=== PATIENT | female | born 1990 | race African-American/Black ===

== ENCOUNTER 2025-10-11 14:09 | Outpatient (REF) | payer OTHER, SELFPAY ==
--- OUTSIDE RECORDS SUMMARY | 2025-10-11 11:30 | XMS_ITS | Encounter Summary ---
Author Organization [employer] Address [address] [facility] 7 [place] [address] Care Team Providers Care Extrusion Former Name Role Phone Job Zimmerman Unavailable Unavailable Lisa Araujo MD Primary Care Provider [phone] Encounter Details Date Type Department Care Team ([facility] Contact Info) Description 10/11/2025 11:30 AM EST Office Visit [facility] [address] [place], [place] [phone] Lisa Araujo MD [address] [place] [address] Dysuria (Primary Dx) Social History Tobacco Use Types Packs/Day Years Used Date Smoking Tobacco: Never Passive Smoke Exposure: Never Smokeless Tobacco: Never Alcohol Answer Date Recorded How often do you have a drink containing alcohol ? 2 01/24/2023 How many drinks containing a lcohol do you have on a typical day when you are drinking? 1 01/24/2023 How often do you have six or more drinks on one occasion? 0 01/24/2023 Depression Answer Date Recorded Patient Health Questionnaire-9 Score 12 06/11/2024 Patient Health Questionnaire-9 Score 12 06/11/2024 Last PHQ-9: Questionnaire Data Not on file 0 06/11/2024 Housing Stability Answer Date Recorded What is your housing situation today? I have fernanda hudson 08/25/[address] you li ve. Do you have problems with any of the following? None of the above 08/25/2023 Food Insecurity Answer Date Recorded Within the past 12 months, y ou worried that your food would run out before you got money to buy more: Never True 08/25/2023 Within the past 12 months,th e food you bought just didn't last and you didn't have enough money to get more: Never True Transportation Answer Date Recorded In the past 12 months, has l ack of transportation kept you from medical appts, meetings, work or from getting things needed for daily living? No 08/25/2023 Utilities Answer Date Recorded In the past 12 months, has t he [employer], [employer], oil or water [employer] threatened to shut off services in your home? No 08/25/2023 Depression Answer Date Recorded Patient Health Questionnaire-2 Score 3 06/11/2024 Comments No Sex and Gender Information Value Date Recorded Sex Assigned at Female 09/03/2022 10:34 AM EDT Legal Sex Female 10:34 AM EDT Gender Identity Female 09/03/2022 10:34 AM EDT Sexual Orientation Straight 04/13/2024 4: 25 PM EDT documented as of this encounter Last Filed Vital Signs Vital Sign Reading Time Taken Comments Blood Pressure 105/68 10/11/2025 11:42 AM EST Pulse 76 10/11/2025 11:42 AM EST Temperature 36.2 C (97.2 F) 10/11/2025 11:42 AM EST Respiratory Rate 20 10/11/2025 11:42 AM EST Oxygen Saturation 98% 10/11/2025 11:42 AM EST Inhaled Oxygen Concentration - - Weight 87.1 kg (192 lb) 10/11/2025 11:42 AM EST Height 175.3 cm (5' 9 ) 10/11/2025 11:42 AM EST Body Mass Index 28.35 10/11/2025 11:42 AM EST documented in this encounter Plan of Treatment Scheduled Orders Name Type Priority Associated Diagnoses Orde r Schedule Culture, Urine, Routine Microbiology Routine Dysuria Expected: 10/11/2025 (Approximate), Expires: 10/11/2026 documented as of this encounter Procedures Procedure Name Priority Date/Time Associated Diagnosis Comments POCT URINALYSIS DIPSTICK Routine 10/11/2025 11:51 AM EST Dysuria documented in this encounter Results * (ABNORMAL) POCT Urinalysis (10/11/2025 11:51 AM EST) Color, UA Yellow Clarity, UA Clear Glucose, UA 1+ 70+ Comment:100 mg/dl Bilirubin, UA Negative Ketones, UA Negative Spec Grav, UA 1.010 Blood, UA Positive(A) Negative, None Detected Comment:moderate pH, UA 7.0 Protein, UA Negative Urobilinogen, UA 0.2 Leukocytes, UA Trace Negative, Rare, Trace, 1+ (17), 2+ (35), 3+ (70), Trace (15) Comment:small Nitrite, UA Positive(A) Negative, None Detected Appearance, UA clear QC Media Lot # [id number] Lot# Expiration Date [id number] Urine (Urine, Random) 10/11/2025 11:51 AM EST us Lisa Araujo MD POINT OF CARE TEST ENTER/EDIT ORDERABLES Final Result documented in this encounter Visit Diagnoses Diagnosis Dysuria- Primary documented in this encounter Additional Health Concerns Assessment Noted Time PHQ-9 Depression Total Score: 12 024 2:54 PM EDT documented as of this encounter Care Teams Extrusion Former Relationship Specialty Start Date End Date Lisa Araujo MD [address] [place] [address] PCP - General Family Medicine 07/13/24 Job Zimmerman FNP Nurse Practitioner Family Medicine 09/16/23 [facility] 09/18/[address] [place] [address] Consulting Physician Ophthalmology 09/18/24 Ms. Grant Psychologist 09/18/24 documented as of this encounter
--- OUTSIDE RECORDS SUMMARY | 2025-10-11 23:04 | XMS_ITS | Encounter Summary ---
Author Organization [employer] Address [address] [facility] 7 [place] [address] Care Team Providers Care Power Transformer Repairer Name Role Phone Job Zimmerman SENIOR VICE PRESIDENT AND CHIEF INFORMATION OFFICER Unavailable Unavailable Lisa Araujo MD Primary Care Provider [phone] Reason for Visit * Reason Onset Date Comments Nurse Triage 10/11/2025 Encounter Details Date Type Department Care Team ([facility] Contact Info) Description 10/11/2025 Telephone [facility] MED [facility] PEDS [address] [place] [address] Lisa Araujo MD [address] [place] [address] Nurse Triage Social History Tobacco Use Types Packs/Day Years [...] the past 12 months, has t he [employer], gas, oil or water company threatened to shut off services in your home? No 08/25/2023 Depression Answer Date Recorded Patient Health Questionnaire-2 Score 3 06/11/2024 Comments No Sex and Gender Information Value Date Recorded Sex Assigned at Female 09/03/2022 10:34 AM EDT Legal Sex Female 10:34 AM EDT Gender Identity Female 09/03/2022 10:34 AM EDT Sexual Orientation Straight 04/13/2024 4: 25 PM EDT documented as of this encounter Miscellaneous Notes * Telephone Encounter - Debbi Flores RN - 10/11/2025 9:42 AM EST TC placed to pt for triage. Pt reports they began with sharp pains with urination yesterday. Pt reports they are also having urgency but will urinate very little when the feel they urge to use the restroom. Pt reporting malodorous urine. Pt reports they did take AZO which caused their urine to turnorange. Pt denies fever, chills, back pain or side pain. Pt booked for sick on site with PCP today at 11:30 AM. Pt agreeable to appointment and denies questions at this time. Protocol Used: Urination Pain - Female (Adult) Protocol-Based Disposition: See in Office or Video Visit Today Video visit offer not recorded Positive Triage Question: * Painful urination AND EITHER frequency or urgency * All higher-acuity triage questions were negative. Care Advice Discussed: * Reasons To Call Back - Fever or back pain occurs - You become worse * Telephone Encounter - Maximiliano Watersjane - 10/11/2025 8:43 AM EST Symptoms: Urine Symptoms, Urination Pain Outcome: Schedule an urgent appointment (within 4 hours) or talk to a nurse or provider soon Reason: Pain when passing urine (peeing) The caller accepted this outcome. Contact pt at [phone] documented in this encounter Plan of Treatment Not on file documented as of this encounter Visit Diagnoses Not on filedocumented in this encounter Additional Health Concerns Assessment Noted Time PHQ-9 Depression Total Score: 024 2:54 PM EDT documented as of this encounter Care Teams Power Transformer Repairer Relationship Specialty Start Date End Date Lisa Araujo MD [address] [place] [address] PCP - General Family Medicine 07/13/24 Job Zimmerman FNP Nurse Practitioner Family Medicine 09/16/23 [facility] 09/18/[address] [place] [address] Consulting Physician Ophthalmology 09/18/24 Ms. Grant Psychologist 09/18/24 documented as of this encounter
--- OUTSIDE RECORDS SUMMARY | 2025-10-11 23:04 | XMS_ITS | Encounter Summary ---
Author Organization [facility] Prior to 09/04/2024 Address [address] [place] [address] Care Team Providers Care Chief Librarian Work With Blind Name Role Phone Maru Arce MD Primary Care Provider [phone] Encounter Details Date Type Department Care Team Description 03/06/2018 Impregnator Operator Report Medical Records [address] [place] [address] Marcia Dunne NP Social History Tobacco Use Types Packs/Day Years Used Date Smoking Tobacco: Former Alcohol Use Standard Drinks/Week Comments Not Asked 0 (1 standard drink = 0.6 oz pur e alcohol) Financial Resource Strain Answer Date R ecorded How hard is it for you to pa y for the very basics like food, housing, medical care, and heating? Not hard at all 12/29/2019 Food Insecurity Answer Date Recorded Within the past 12 months, y ou worried that your food would run out before you got money to buy more. Never true 12/29/2019 Within the past 12 months, t he food you bought just didn't last and you didn't have money to get more. Never true 12/29/2019 Transportation Needs Answer Date Record ed In the past 12 months, has l ack of transportation kept you from medical appointments or from getting medications? No 12/06 In the past 12 months, has l ack of transportation kept you from meetings, work, or getting things needed for daily living? No 12/29/2019 Sex Assigned at Date Recorded Not on file documented as of this encounter Plan of Treatment Not on file documented as of this encounter Visit Diagnoses Not on filedocumented in this encounter Care Teams Chief Librarian Work With Blind Relationship Specialty Start Date End Date Maru Arce MD [address] [place] [address] PCP - General Internal Medicine 04/06/16 documented as of this encounter
--- OUTSIDE RECORDS SUMMARY | 2025-10-11 23:04 | XMS_ITS | Encounter Summary ---
Author Organization [employer] [facility] Prior to 09/04/2024 Address [address] [facility] [place] [place] [address] Care Team Providers Care Small Arms Repairer Name Role Phone Maru Arce MD Primary Care Provider [phone] Encounter Details Date Type Department Care Team Description 07/27/2016 Release of Information Medical Records [address] [place] [address] Abstract, Provider Social History Tobacco Use Types Packs/Day Years [...] on filedocumented in this encounter Care Teams Small Arms Repairer Relationship Specialty Start Date End Date Maru Arce MD [address] [place] [address] PCP - General Internal Medicine 04/06/16 documented as of this encounter
--- OUTSIDE RECORDS SUMMARY | 2025-10-11 23:04 | XMS_ITS | Encounter Summary ---
Author Organization [employer] [facility] Prior to 09/04/2024 Address [address] [facility] [place] [address] Care Team Providers Care Sheep Killer Name Role Phone Maru Arce MD Primary Care Provider [phone] Encounter Details Date Type Department Care Team Description 06/05/2019 Release of Information Medical Records [address] [place] [address] Abstract, Provider Social History Tobacco Use Types Packs/Day Years Used Date Smoking Tobacco: Former Smokeless Tobacco: Never Comments:brief at age 22 Alcohol Use Standard Drinks/Week Comments Yes 0 (1 standard drink = 0.6 oz pur e alcohol) not in Financial Resource Strain Answer Date R ecorded [...] on filedocumented in this encounter Care Teams Sheep Killer Relationship Specialty Start Date End Date Maru Arce MD [facility] [place] [address] PCP - General Internal Medicine 04/06/16 documented as of this encounter
--- OUTSIDE RECORDS SUMMARY | 2025-10-11 23:04 | XMS_ITS | Encounter Summary ---
Author Organization [employer] Address [address] [address] [facility] [address] [place] [address] Care Team Providers Care Cash Clerk Name Role Phone Job Zimmerman Unavailable Unavailable Lisa Araujo MD Primary Care Provider [phone] Encounter Details Date Type Department Care Team (Latest Contact Info) Description 10/11/2025 Travel Social History Tobacco Use Types Packs/Day Years [...] the past 12 months, has t he electric, gas, oil or water company threatened to [...] PM EDT documented as of this encounter Plan of Treatment Not on file documented as of this encounter Visit Diagnoses Not on filedocumented in this encounter Additional Health Concerns Assessment Noted Time PHQ-9 Depression Total Score: 12 024 2:54 PM EDT documented as of this encounter Care Teams Cash Clerk Relationship Specialty Start Date End Date Lisa Araujo MD [address] [place] [address] PCP - General Family Medicine 07/13/24 Job Zimmerman FNP Nurse Practitioner Family Medicine 09/16/23 [facility] Op[facility] 09/18/[address] [place] [address] Consulting Physician Ophthalmology 09/18/24 Ms. Grant Psychologist 09/18/24 documented as of this encounter
--- OUTSIDE RECORDS SUMMARY | 2025-10-11 23:04 | XMS_ITS | Encounter Summary ---
Author Organization [facility] Prior to 09/04/2024 Address [address] [place] [address] Care Team Providers Care Scheduling Agent Name Role Phone Maru Arce MD Primary Care Provider [phone] Reason for Visit * Reason Onset Date Comments medication problems 06/20/2019 Encounter Details Date Type Department Care Team Description 06/20/2019 Telephone [facility] [address] [place] [address] Maru Arce, [address] [place] [address] medication problems Social History Tobacco Use Types Packs/Day Years [...] on file documented as of this encounter Miscellaneous Notes * Telephone Encounter - Adore Ivy L.P.N. - 06/20/2019 3:03 PM EDT Rody returned call, she will call pt. * Telephone Encounter - Adore Ivy L.P.N. - 06/20/2019 3:00 PM EDT Pt is , was advised unisom for nausea to be taken at night. States she took it last night and it did not help at all, states she had to leave work today as she was constantly vomiting. Call placed to Marie KIMBLE diabetes education coordinator, message left. * Telephone Encounter - Lilibeth Serrato - 06/20/2019 2:36 PM EDT Who is calling? The patient Name of the medication [place] Medication ( doesn't know the name) What is the specific problem or interaction? Not at pharamcy, was here yesterday If the patient is having a problem with taking the med - how long has the problem been going on? N/A documented in this encounter Plan of Treatment Not on file documented as of this encounter Visit Diagnoses Not on filedocumented in this encounter Care Teams Scheduling Agent Relationship Specialty Start Date End Date Maru Arce MD [facility] [place] [address] PCP - General Internal Medicine 04/06/16 documented as of this encounter
--- OUTSIDE RECORDS SUMMARY | 2025-10-11 23:04 | XMS_ITS | Clinical Summary ---
Author Organization [facility] Address [address] [place] [address] Phone Care Team Providers Care Dialysis Patient Care Technician Name Role Phone Marysol Arce MD Primary Care Prov ider Allergies No known active allergies Medications sertraline (ZOLOFT) 50 mg tablet Take 2 tablets (100 mg total) by mouth 1 (one) time each day. 11/30/2020 Active Active Problems Problem Noted Date Diagnosed Date Gestational hypertension 01/06/2020 Overview (12/02/2024): Diagnosed on admission. No labs performed, but did not persist after delivery. ASA prophylaxis next . Headache 07/11/2019 Anxiety 05/25/2019 Asthma 05/25/2019 Overview (12/02/2024): Stable, albuterol inhaler as needed Depression 05/25/2019 Overview (12/02/2024): Started on zoloft at 12 weeks Referral for Will try and wean closer to delivery Sleep disorder 07/25/2016 Rh negative status during Immunizations Immunization Administration Dates Next Due Tdap Tetanus diptheria acell ular pertussis (Boostrix; Adacel) 7yo and older 11/06/2019 Surgical History Surgery Date Site/Laterality Comments SECTION PROCEDURE: HISTORICAL DELIVERY Medical History Medical History Date Comments Depression 05/25/2019 DX:Depression Anxiety 05/25/2019 DX:Anxiety Asthma 05/25/2019 DX:Asthma; COMME NT: Stable, albuterol inhaler as needed Sleep disorder 07/25/2016 DX:Sleep disorde r Headache 07/11/2019 DX:Headache Family History Medical History Relation Name Comments Breast cancer Neg Hx Colon cancer Neg Hx Ovarian cancer Neg Hx Social History Tobacco Use Types Packs/Day Years Used Date Smoking Tobacco: Former Smokeless Tobacco: Never Alcohol Use Standard Drinks/Week Comments Yes 0 (1 standard drink = 0.6 oz pur e alcohol) Comments Unknown Sex and Gender Information Value Date Recorded Sex Assigned at Not on file Legal Sex Female 5:16 AM EST Gender Identity Not on file Sexual Orientation Not on file Plan of Treatment Health Maintenance Due Date Last Done Comments Hepatitis B Vaccines (1 of 3 - 19+ 3-dose series) 2010 Pneumococcal Vaccine: Pediat rics (0 to 5 Years) and At-Risk Patients (6 to 49 Years) (1 of 2 - PCV) 2010 Cervical Cancer Screening: P ap Smear 02/09/2012 HPV Vaccines (1 - 3-dose SCD M series) 2018 Cholesterol Screening (Lipid Panel) 10/13/2022 Hepatitis C Screening 10/13/2022 Social Influencers of Health Screening 10/13/2022 Hypertension/CHF/CAD Annual BMP Blood Test 10/19/2022 07/25/2016 Depression Screening 11/04/2024 COVID-19 Vaccine ( - 2024-2 6 season) 2025 Influenza Vaccine (#1) 2025 DTaP,Tdap,and Td Vaccines (2 - Td or Tdap) 11/06/2029 11/06/2019 RSV Immunization Adult Patie nts (1 - 1-dose 75+ series) 2066 HIV Screening Completed 06/03/2019 HIB Vaccines Aged Out No longer eligi ble based on patient's age to complete this topic Hepatitis A Vaccines Aged Out No long er eligible based on patient's age to complete this topic IPV Vaccines Aged Out No longer eligi ble based on patient's age to complete this topic MMR Vaccines Aged Out No longer eligi ble based on patient's age to complete this topic Meningococcal ACWY Vaccine Aged Out N o longer eligible based on patient's age to complete this topic Meningococcal B Vaccine Aged Out No l onger eligible based on patient's age to complete this topic RSV Immunization Patients Un madai 20 months Aged Out No longer eligible b ased on patient's age to complete this topic Varicella Vaccines Aged Out No longer eligible based on patient's age to complete this topic Procedures Procedure Name Priority Date/Time Associated Diagnosis Comments HIV SCREENING Routine 06/03/2019 ANNUAL BMP BLOOD TEST Routine 07/25/2016 from Last 3 Months or Most Recently Relevant to Health Maintenance Results * HIV Screening (06/03/2019) HIV Screening Abstracted Historical Provider HEALTH MAINTENANCE Final Result * Annual BMP Blood Test (07/25/2016) Annual BMP Blood Test Abstracted Historical Provider HEALTH MAINTENANCE Final Result from Last 3 Months or Most Recently Relevant to Health Maintenance Care Teams Dialysis Patient Care Technician Relationship Specialty Start Date End Date Marysol Arce MD PCP - General Internal Medicine 04/06/16
--- OUTSIDE RECORDS SUMMARY | 2025-10-11 23:04 | XMS_ITS | Clinical Summary ---
Author Organization [facility] Prior to 09/04/2024 Address [address] [facility] [place] [address] Care Team Providers Care Respite Worker Name Role Phone Maru Arce MD Primary Care Provider [phone] Allergies No known active allergies Medications Medication Sig Dispensed Refills Start Date End Date Status sertraline (ZOLOFT) 50 MG tabletIndications:Moder ate episode of recurrent major depressive disorder (HCC) Take 2 Tabs by mouth daily. 60 Tab 2 11/30/2020 Active Active Problems Problem Noted Date Gestational hypertension 01/06/2020 Overview: Diagnosed on admission. No labs performed, but did not persist after delivery. ASA prophylaxis next . Headache 07/11/2019 Rh negative status during 11/2018 Overview: Needs Rhogam eval at 28 weeks and . Rec'd 10/09/2019 Supervision of normal first Overview: 1. [facility] site: [place] 2. Delivery site: [facility] 3. Dating criteria: LMP c/ew early sono 3. Blood type: A Negative 4. Genetic screening: Normal 1st Trimester screen; AFP negative 5. GBS: Date: 12/04/2019 Negative 6. FOB name: Artemio Parrish 7. Plans A. Epidural or other pain management -open B. Labor support identified - artemio Jones - Date: 11/06/19 D. Breast or Bottle feed: both breast and bottle E. Baby's name - BOY F. Circumcision - yes Zika assessment screening: negative Pedi- [facility]oNE- [place] PPCM Asthma 05/25/2019 Overview: Stable, albuterol inhaler as needed Anxiety 05/25/2019 Depression 05/25/2019 Overview: Started on zoloft at 12 weeks Referral for Will try and wean closer to delivery Sleep disorder 07/25/2016 Immunizations Name Administration Dates Next Due Tdap 11/06/2019 Family History Medical History Relation Name Comments CA Breast Negative Hx CA Colon Negative Hx CA Ovarian Negative Hx Social History Tobacco Use Types Packs/Day [...] Assigned at Date Recorded Not on file Last Filed Vital Signs Vital Sign Reading Time Taken Comments Blood Pressure 100/62 11/09/2020 10:02 AM EST Pulse 79 11/09/2020 10:02 AM EST Temperature 36.2 C (97.2 F) 12/11/2019 1:42 PM EST Respiratory Rate 16 01/25/2020 10:55 AM EDT Oxygen Saturation - - Inhaled Oxygen Concentration - - Weight 75.5 kg (166 lb 8 oz) 11/09/2020 10:02 AM EST Height 175.3 cm (5' 9 ) 11/09/2020 10:02 AM EST Body Mass Index 24.59 11/09/2020 10:02 AM EST Plan of Treatment Health Maintenance Due Date Last Done Comments Covid-19 Vaccine (#1) 1991 PNEUMOCOCCAL VACCINE FOR HIG H RISK PATIENTS (#1) 2010 CERVICAL CANCER SCREENING 02/09/2012 BASELINE HEALTH EXAM 18-39 07/25/2021 07/25/2016, CHOLESTEROL SCREENING 07/25/2021 07/25/2016 BMI CHECK/ADVISE 11/04/2024 07/25/2016 DEPRESSION SCREENING/FOLLOWUP 11/04/2024, 01/23/2021, 01/19/2021, Additional history exists SOCIAL NEEDS SCREENING 11/04/2024 INFLUENZA (#1) 2025 DTAP/TDAP/TD (2 - Td or Tdap) 11/06/2029 11/06/2019 Care Teams Respite Worker Relationship Specialty Start Date End Date Maru Arce MD [address] [place] [address] PCP - General Internal Medicine 04/06/16
--- OUTSIDE RECORDS SUMMARY | 2025-10-11 23:04 | XMS_ITS | Clinical Summary ---
Author Organization [employer] Address [address] 7 [place] [address] Care Team Providers Care Instrument Lens Inspector Name Role Phone Job Zimmerman Unavailable Unavailable Lisa Araujo MD Primary Care Provider [phone] Allergies No known active allergies Medications * This document contains information received from the source organization and may not represent a complete record from that organization. ergocalciferol (Vitamin D2) 1.25 MG (13726 UT) capsule Take 1 capsule (1.25 mg) by mouth 1 (one) time per week. 15 capsule 02/07/2023 Active ARIPiprazole (Abilify) 10 MG tablet Take 1 tablet (10 mg) by mouth Once per day. 30 tablet 3 05/12/2024 Active lamoTRIgine (LaMICtal XR) 300 mg tablet sustained-releas e 24 hour 24 hr tabletIndication s:Bipolar affective disorder, remission status unspecified (CMS/HCC) ([facility]) Take 1 tablet (300 mg) by mouth in the morning. 90 tablet 3 05/12/2024 Active busPIRone (Buspar) 10 MG tablet Take 1 tablet (10 mg) by mouth 2 times daily. 60 tablet 5 06/11/2024 Active brimonidine (AlphaGAN) 0.2 % ophthalmic solution PLACE ONE DROP IN EACH EYE TWICE DAILY 08/11/2024 Active albuterol 108 (90 Base) MCG/ACT inhaler Inhale 2 puffs every 4 (four) hours if needed for wheezing. 18 g 09/18/2024 Active hydrOXYzine pamoate (Vistaril) 25 MG capsule TAKE ONE CAPSULE EVERY DAY NEEDED FOR SLEEP 08/30/2025 Active melatonin 5 MG tablet Take 1 tablet by mouth at bedtime. 08/30/2025 Active traZODone (Desyrel) 50 MG tablet TAKE 1/2 TO 1 TABLET AT BEDTIME NEEDED FOR SLEEP 06/24/2025 Active ARIPiprazole (Abilify) 15 MG tablet Take 15 mg by mouth Once per day. 08/30/2025 Active busPIRone (Buspar) 30 MG tablet Take 30 mg by mouth 2 times daily. 08/30/2025 Active lamoTRIgine (LaMICtal XR) 100 mg tablet sustained-releas e 24 hour 24 hr tablet Take 100 mg by mouth Once per day. 09/28/2025 Active lamoTRIgine (LaMICtal XR) 200 mg tablet sustained-releas e 24 hour 24 hr tablet Take 200 mg by mouth Once per day. 09/28/2025 Active nitrofurantoin, macrocrystal-mon ohydrate, (Macrobid) 100 MG capsule Take 1 capsule (100 mg) by mouth 2 times daily for 7 days. 14 capsule 10/11/2025 12:14 PM EST 10/11/2025 10/18/20 25 Active Active Problems Problem Noted Date Diagnosed Date Rh negative status during 10/11/2025 Nausea 04/13/2024 Vitamin D deficiency 02/07/2023 Bipolar disorder 11/08/2022 Assessment & Plan (05/18/2024 9:12 AM EDT): During IBH Consult Jhoyn presenting with excessive worry/anxiety, difficulty controlling worry, easily fatigued, irritability, and sleep disturbance difficulty falling asleep; for a period of 18+ mo, for all symptoms in the context of history of chronic mental health illness. Jhony carries a diagnosis for bipolar disorder per her medical chart diagnosed by Job Lee Jhony reports history of mental health conditions since she was 13 years-old. She receives support from her and mom. Pt was connected with OP services in the past but lost care. Currently on medication to treat symptoms prescribed by Job Leonardo. Presentation of symptoms lead to significant barriers in the occupational and interpersonal settings. Pt is aware of importance of practicing copings skills and self-care as part of the treatment. During today's consult patient was engaged with active and reflective listening. clinician provided a therapeutic approach using open-ended questions. Pt was open and flexible to try coping skills and will be referred to external agency for OP individual therapy. Medication management will continue with [facility]/psych provider by Job's recommendation. PLAN: (check all that apply) New/Additional Services needed PCP management On-site non-integrated services Off-site services for Behavioral Health Integration Plan Internal Follow up with [facility] External OP therapy referral Patient Self Plan Patient to utilize skills provided in intervention , Patient to reach out to [facility] team as needed, Comply with medication , Patient to engage in OP therapy , and Patient to reach out to [facility] as needed Assessment & Plan (05/12/2024 9:34 AM EDT): Recently experienced new onset of multimodal hallucinations: high-pitched sound, shadows/someone or something in the room, which she finds extremely upsetting and frightening. No prior hx psychotic features. No known provoking factors. Family hx bipolar disorder (father). Unable to take Seroquel 25 mg at bedtime due to need to be up late studying and getting up early with her young child. She had been doing significantly better, but is now feeling quite depressed, with low motivation, fatigue despite sleeping enough. Strategized with patient ways to schedule activities with her son that would get her out of the house and around other people. Also suggest she look at the insurance website to see if there are providers listed. Will also request BE from [facility] clinician. Will increase to Abilify 10 mg daily. Continue Lamotrigine XR 300 mg once daily. Although she does not plan to have more children, she does have reproductive capacity. Reassured that both medications are believed to be safe in . Since this provider will be retiring, patient will be referred to new [facility] psychiatric provider. She is aware that appts will be via televisit, and that provider will not be an employee of [facility]. She gives permission to share PHI. Any issues or concerns call the health center. All her questions were answered and I have wished her well. She agrees with the plan. Assessment & Plan (03/23/2024 2:35 PM EDT): Recently experienced new onset of multimodal hallucinations: high-pitched sound, shadows/someone or something in the room, which she finds extremely upsetting and frightening. No prior hx psychotic features. No known provoking factors. Family hx bipolar disorder (father). Unable to take Seroquel 25 mg at bedtime due to need to be up late studying and getting up early with her young child. She is doing significantly better, with control of mood swings, panic attacks, and hallucinations. Experiencing some emotional blunting but does not find that too distressing. Continue Abilify 5 mg once daily, and Lamotrigine XR 300 mg once daily. Although she does not plan to have more children, she does have reproductive capacity. Reassured that both medications are believed to be safe in . She will F/U with therapist, and with me in 6 weeks for a final appointment before I retire and she is transitioned to new prescriber. She agrees with the plan. Assessment & Plan (02/10/2024 1:03 PM EDT): Recently experienced new onset of multimodal hallucinations: high-pitched sound, shadows/someone or something in the room, which she finds extremely upsetting and frightening. No prior hx psychotic features. No known provoking factors. No known family hx psychotic disorder. Unable to take Seroquel 25 mg at bedtime due to need to be up late studying and getting up early with her young child. Had some improvement with Abilify 2 mg once daily. Will now increase to Abilify 5 mg once daily. Will also continue Lamotrigine XR 300 mg once daily. Had intake but still awaiting first appt with new therapist. On 10/01/2023 provider informed pt that I would be retiring, but we would make every effort to ensure continuity of care. Meanwhile, F/U with me in 6 weeks.She agrees with the plan. Assessment & Plan (12/16/2023 2:41 PM EST): Recently experienced new onset of multimodal hallucinations: high-pitched sound, shadows/someone or something in the room, which she finds extremely upsetting and frightening. No prior hx psychotic features. No known provoking factors. No known family hx psychotic disorder. Unable to take Seroquel 25 mg at bedtime due to need to be up late studying and getting up early with her young child. Instead she will start Abilify 2 mg once daily for 1 week, then may increase to 2 tablets daily. Will also continue Lamotrigine XR 300 mg once daily. Had intake but still awaiting first appt with new therapist. On 10/01/2023 provider informed pt that I would be retiring, but we would make every effort to ensure continuity of care. Meanwhile, F/U with me in 6-8 weeks.She agrees with the plan. Assessment & Plan (10/21/2023 4:07 PM EST): Recently experienced new onset of multimodal hallucinations: high-pitched sound, shadows/someone or something in the room, which she finds extremely upsetting and frightening. No prior hx psychotic features. No known provoking factors. No known family hx psychotic disorder. Has only been able to try the new Seroquel 25 mg at bedtime a few times as she has been studying for finals at school. That will be ending now, so she plans to start taking every night. Will also continue Lamotrigine XR 300 mg once daily. Had intake but still awaiting first appt with new therapist next week. F/U with me in 4-6 weeks. On 10/01/2023 provider informed pt that I would be retiring within the next year or so. She agrees with the plan. Assessment & Plan (10/01/2023 11:15 AM EST): With new onset multimodal hallucinations: high-pitched sound, shadows/someone or something in the room, which she finds extremely upsetting and frightening. No prior hx psychotic features. No known provoking factors. No known family hx psychotic disorder. Will start Seroquel 25 mg at bedtime, cautioned about sedation. Mood swings still controlled. Continue Lamotrigine XR 300 mg once daily. Will be starting with new therapist next week. F/U with me in 3-4 weeks. Today 10/01/2023 provider informed pt that I would be retiring within the next year or so, but we would still meet multiple times before that and anticipate that she will be stabilized once again. She agrees with the plan. Assessment & Plan (07/15/2023 2:32 PM EDT): Still doing very well, with mood swings controlled. Continue Lamotrigine XR 300 mg once daily. She will call to see about transfer to new therapist, and will let us know if she needs a new referral. F/U with me in 2-3 months. She agrees with the plan. Assessment & Plan (04/25/2023 10:04 AM EDT): Mood swings controlled. Continue Lamotrigine XR 300 mg once daily. F/U with counseling as usual with me in 2-3 months. She agrees with the plan. Assessment & Plan (03/14/2023 11:23 AM EDT): Mood swings essentially controlled. Continue Lamotrigine XR 300 mg once daily. F/U with counseling as usual with me in 6 weeks. She agrees with the plan. Assessment & Plan (01/31/2023 11:19 AM EDT): Mood swings significantly improved, but not completely controlled. Feels the increased Lamotrigine XR 300 mg once daily is helping. Also recently started counseling and optimistic that will also help. No change at this time. Reviewed with patient that we could still increase the Lamotrigine if needed, and/or add another agent, e.g., Abilify. F/U with counseling as planned and with me in 6 weeks. She agrees with the plan. Assessment & Plan (12/20/2022 12:05 PM EST): Mood swings less profound but not controlled. Has not yet increased to Lamotrigine XR 300 mg once daily. Provider checked with pharmacy and it will be covered with a $25 copay. They will notify the patient. Remain off the Sertraline. May take Melatonin prn. Avoid alcohol. Recommend she contact the [facility] via phone or walk-in to connect with counseling. F/U with me in 4-6 weeks. She agrees with the plan. Assessment & Plan (11/08/2022 11:39 AM EST): Mood swings less profound but not controlled. Will increase again to Lamotrigine XR 300 mg once daily. Again reviewed uncommon but potentially serious risk of rash reaction. If that occurs, stop the Lamotrigine and do not resume. Will at this time discontinue completely Sertraline. May take Melatonin prn. Avoid alcohol. F/U for counseling when available. F/U with me in 6 weeks. She agrees with the plan. Gestational hypertension 01/06/2020 Overview (01/24/2023): Diagnosed on admission. No labs performed, but did not persist after delivery. ASA prophylaxis next . Headache 07/11/2019 Asthma 05/25/2019 Overview (09/18/2024): Stable, albuterol inhaler as needed Assessment & Plan (09/18/2024 4:31 PM EST): Discussed medication refills as needed. Relevant Medication Albuterol 108 (90 Base) MCG/ACT inhaler Depression 05/25/2019 Overview (10/11/2025): Started on zoloft at 12 weeks Referral for Will try and wean closer to delivery Persistent insomnia 11/05/2018 Anxiety 11/05/2018 Assessment & Plan (05/18/2024 9:13 AM EDT): During IBH Consult Jhony presenting with excessive worry/anxiety, difficulty controlling worry, easily fatigued, irritability, and sleep disturbance difficulty falling asleep; for a period of 18+ mo, for all symptoms in the context of history of chronic mental health illness. Jhony carries a diagnosis for bipolar disorder per her medical chart diagnosed by Job Lee Jhony reports history of mental health conditions since she was 13 years-old. She receives support from her and mom. Pt was connected with OP services in the past but lost care. Currently on medication to treat symptoms prescribed by Job Leonardo. Presentation of symptoms lead to significant barriers in the occupational and interpersonal settings. Pt is aware of importance of practicing copings skills and self-care as part of the treatment. During today's consult patient was engaged with active and reflective listening. clinician provided a therapeutic approach using open-ended questions. Pt was open and flexible to try coping skills and will be referred to external agency for OP individual therapy. Medication management will continue with [facility]/psych provider by Job's recommendation. PLAN: (check all that apply) New/Additional Services needed PCP management On-site non-integrated services Off-site services for Behavioral Health Integration Plan Internal Follow up with [facility] External OP therapy referral Patient Self Plan Patient to utilize skills provided in intervention , Patient to reach out to [facility] team as needed, Comply with medication , Patient to engage in OP therapy , and Patient to reach out to [facility] as needed Sleep disorder 07/25/2016 Resolved Problems Problem Noted Date Diagnosed Date Resolved Date Epigastric pain 04/13/2024 09/18/2024 Assessment & Plan (04/13/2024 3:11 PM EDT): Ordering lab work for further evaluation. Advised to hold of on MJ for one week. Prescribing Zofran for nausea. Advised to drink laury alma before getting out of bed. Relevant Medications Ondansetron (Zofran) 4 MG Tablet Low vitamin D level 03/02/2019 09/18/20 24 Encounters Date Type Department Care Team Description 10/11/2025 11:30 AM EST Office Visit [facility] [address] [place] [address] Lisa Araujo MD Dysuria (Primary Dx) 10/11/2025 Travel 10/11/2025 Telephone [facility] [address] [place] [address] Lisa Araujo MD Nurse Triage from Last 3 Months Immunizations Immunization Administration Dates Next Due Pneumococcal Conjugate PCV 20 09/18/2024 Tdap 11/06/2019 Social History Tobacco Use Types Packs/Day Years Used Date Smoking Tobacco: Never Passive Smoke Exposure: Never Smokeless Tobacco: Never Tobacco Cessation:Counseling Given: Not Answered Alcohol Answer Date Recorded How often do [...] Orientation Straight 04/13/2024 4: 25 PM EDT Last Filed Vital Signs Vital Sign Reading [...] Mass Index 28.35 10/11/2025 11:42 AM EST Plan of Treatment Health Maintenance Due Date Last Done Comments Disability Screening 1991 Alcohol/Substance Use Screening 2003 Family Planning (PISQ) 2006 HPV Vaccines (1 - 3-dose series) 2006 Hepatitis B Vaccines (1 of 3 - 19+ 3-dose series) 2010 SDOH Screening 01/25/2024 01/24/2023 Depression Monitoring 12/12/2024 06/11/2024 , 06/11/2024 COVID-19 Vaccine (3 - 2024-2 6 season) 2025 05/26/2021, 05/05/2021 Influenza Vaccine (#1) 2025 Pap Smear 02/07/2026 02/07/2023 Tobacco Screening 10/11/2026 10/11/2025 Cervical Cancer Screening 2028 HPV/Cotest 2028 02/07/2023 Lipid Panel 10/06/2029 10/06/2024, 01/25/2023 DTaP/Tdap/Td Vaccines (2 - T d or Tdap) 11/06/2029 11/06/2019 Zoster Vaccines (1 of 2) 2041 RSV Patients and Patients Aged 60 years or older (1 - 1-dose 75+ series) 2066 HIV Screening Completed 03/06/2023 Hepatitis C Screening Completed 03/06/2023 Pneumococcal Vaccine: Pediatrics (0 to 5 Years) and At-Risk Patients (6 to 49) Years Completed 09/18/2024 HIB Vaccines Aged Out No longer eligi [...] patient's age to complete this topic Meningococcal Vaccine Aged Out No morena beata eligible based on patient's age to complete this topic RSV under 20 months Aged Out No longe r eligible based on patient's age to complete this topic Rotavirus Vaccines Aged Out No longer eligible based on patient's age to complete this topic Procedures Procedure Name Priority Date/Time Associated Diagnosis Comments POCT URINALYSIS DIPSTICK Routine 10/11/2025 11:51 AM EST Dysuria LIPID PANEL, STANDARD Routine 10/06/2024 10:43 AM EST Preop cardiovascular exam HEPATITIS PANEL, GENERAL Routine 03/06/2023 11:37 AM EDT Oral thrush HIV 1 RNA, QN PCR W/RFL TOMÁS (RTI,PI,INTEGRASE) Routine 03/06/2023 11:37 AM EDT Oral thrush IMAGE-GUIDED PAP W/AGE BASED SCR,W/CT/NG/TRICH Routine 02/07/2023 2:14 PM EDT Encounter for gynecological examination (general) (routine) without abnormal findings from Last 3 Months or Most Recently Relevant to Health Maintenance Results * (ABNORMAL) POCT Urinalysis (10/11/2025 11:51 [...] Media Lot # [id number] Lot# Expiration Date [id number] Urine (Urine, Random) 10/11/2025 11:51 AM EST Lisa Araujo MD POINT OF CARE TEST ENTER/EDIT ORDERABLES Final Result * (ABNORMAL) Lipid Panel, Standard (10/06/2024 10:43 AM EST) Triglycerides 63 <150 mg/dL [facility] Comment:Desirable Triglyceri de: less than 150 mg/dLBorderline High Triglyceride 150-199 mg/dLHigh Triglyceride: 200-499 mg/dLVery High Triglyceride: greater than or equal to 5OO mg/dL Cholesterol 230(H) <200 mg/dL [facility] Comment:Desirable Cholestero l: less than 200 mg/dLBorderline High Cholesterol: 200-239 mg/dLHigh Cholesterol: greater than 239 mg/dL LDL Cholesterol Calculated 152(H) <100 mg/dL [facility] Comment:Desirable LDL: less than 100 mg/dLNear Optimal/Above Optimal LDL: 110- 129 mg/dLBorderline High LDL: 130-159 mg/dLHigh LDL: 160-189 mg/dLVery High LDL: greater than or equal to 190 mg/dL HDL Cholesterol 66 >40 mg/dL [facility] Comment:Desirable HDL: great er than 40 mg/dL Note: This HDL assay may give artificially low results in patients with liver disease. Blood Venous blood specimen / Unknown 10/06/2024 10:43 AM EST 10/06/2024 1:35 PM EST us Alexandra Snell MD LAB BLOOD ORDERABLES Final Resul t [facility] [address] [place] [phone] * HIV-1 RNA, Quantitative, Real-Time PCR with Reflex to Genotype (RTI, PI, Integrase) (03/06/2023 11:37 AM EDT) Pathologist [facility] HIV 1 RNA, QN PCR NOT DETECTED copies/mL [facility], HIV 1 RNA, QN PCR NOT DETECTED Log copies/mL [facility], Comment: REFERENCE RANGE: NOT DETECTED copies/mL NOT DETECTED Log copies/mL This test was performed using Real-Time Polymerase Chain Reaction. Reportable range is 20 to 10,000,000 copies/mL (1.30-7.00 Log copies/mL). 03/06/2023 11:3 7 AM EDT 03/06/2023 11:38 AM EDT Trixie Conrad MD LAB BLOOD ORDERABLES Final Re sult Performing Organization Address City/[facility]/ZIP Co de Phone Number [facility] [address], [facility] [place] [address] [facility], [address] [place] [address] * (ABNORMAL) Hepatitis Panel, General (03/06/2023 11:37 AM EDT) Hepatitis A Antibody Total NON-REACT RYANN NON-REACT RYANN [facility] Comment: For additional information, please refer to http://NextGreatPlace.Lionical/faq/TLJ973 (This link is being provided for informational/ educational purposes only.) Hepatitis B Surface Antibody QL REACTIVE( A) NON-REACT RYANN [facility] Hepatitis B Surface Ag NON-REACT RYANN NON-REACT RYANN [facility] Hepatitis B Core Antibody Total NON-REACT RYANN NON-REACT RYANN [facility] Hepatitis C Antibody NON-REACT RYANN NON-REACT RYANN [facility] Index 0.07 <1.00 [facility] [place] [employer] Comment: HCV antibody was non-reactive. There is no laboratory evidence of HCV infection. In most cases, no further action is required. However, if recent HCV exposure is suspected, a test for HCV RNA (test code 96167) is suggested. For additional information please refer to http://NextGreatPlace.Lionical/faq/ZER44b3 (This link is being provided for informational/ educational purposes only.) 03/06/2023 11:3 7 AM EDT 03/06/2023 11:38 AM EDT Trixie Conrad MD LAB BLOOD ORDERABLES Final Re sult Performing Organization Address [facility] Co de Phone Number [facility] [address] [place] [address] [facility] [address] [place] [phone] * Image-Guided Pap with Age-Based Screening??with CT/NG,??Trichomonas (02/07/2023 2:14 PM EDT) Comment [facility] Comment: This order for age-based cervical cancer and STI screening follows ACOG guidelines(PB 168, 140, ZEE553). See individual assays for performing site location. Clinical Information: None given [facility] LMP: NONE GIVEN [facility] Prev. PAP: NONE GIVEN [facility] Prev. BX: NONE GIVEN [facility] SOURCE: Cervix Uni2 Statement Of Adequacy: [facility] Comment: Satisfactory for evaluation. Endocervical/transformation zone component absent. Partially obscuring inflammation Interpretation/Re sult: Negative for intraepithelial lesion or malignancy. [facility] Comment: This Pap test has been evaluated with computer assisted technology. Uni2 It Analyst: [employer]v [employer] Comment: WAC, CT(ASCP) CT screening location: [place] [address] (Always Message) [facility] [employer] Comment: EXPLANATORY NOTE: The Pap is a screening test for cervical cancer. It is not a diagnostic test and is subject to false negative and false positive results. It is most reliable when a satisfactory sample, regularly obtained, is submitted with relevant clinical findings and history, and when the Pap result is evaluated along with historic and current clinical information. HPV nRNA E6/E7 Not Detected Not Detected [facility] Comment: Methodology: Clay Molder-Mediated Amplification This assay detects E6/E7 viral messenger RNA (mRNA) from 14 high-risk HPV types (16,18,31,33,35,39,45,51,52,56,58,59,66,68). Cervical sources are required for HPV testing. If a vaginal source from a patient who has had a total hysterectomy with removal of cervix was submitted, please contact the testing laboratory for alternative testing options. For additional information, please refer to http://NextGreatPlace.Lionical/faq/MYN475j3 (This link if provided for information/ educational purposes only.) Chlamydia trachomatis RNA, TMA, Urogenital NOT DETECTED NOT DETECTED [facility] [employer] Neisseria gonorrhoeae RNA, TMA, Urogenital NOT DETECTED NOT DETECTED [facility] [employer] [facility] Comment [facility] Comment: The analytical performance characteristics of this assay, when used to test SurePath(TM) specimens have been determined by [facility]. The modifications have not been cleared or approved by the FDA. This assay has been validated pursuant to the CLIA regulations and is used for clinical purposes. For additional information, please refer to https://NextGreatPlace.Lionical/faq/QIT958 (This link is being provided for information/ educational purposes only.) Trichomonas vaginalis, QL, TMA, PAP Vial NOT DETECTED NOT DETECTED [employer] [employer] [place] [facility] Comment: The analytical performance characteristics of this assay have been determined by [employer]. The modifications have not been cleared or approved by the FDA. This assay has been validated pursuant to the CLIA regulations and is used for clinical purposes. For additional information, please refer to http://NextGreatPlace.Lionical/ faq/Trichomonastma (This link is being provided for information/ educational purposes only.) Specimen from uterine cervix (specimen) 02/07/2023 2:14 PM EDT 02/07/2023 11:42 PM EDT Trixie Conrad MD LAB CYTOLOGY ORDERABLES Final Result [facility] [address], [place] [address] [employer] [employer] [place] [facility] [address] [place] [address] from Last 3 Months or Most Recently Relevant to Health Maintenance Insurance [facility] 2 Care Teams Instrument Lens Inspector Relationship Specialty Start Date End Date Lisa Araujo MD [address] [place] [address] PCP - General Family Medicine 07/13/24 Job Zimmerman FNP Nurse Practitioner Family Medicine 09/16/23 [facility] 09/18/[address] [place] [address] Consulting Physician Ophthalmology 09/18/24 Ms. Grant Psychologist 09/18/24
--- OUTSIDE RECORDS SUMMARY | 2025-10-11 23:04 | XMS_ITS | Encounter Summary ---
Author Organization [facility] Prior to 09/04/2024 Address [address] [place] [address] Care Team Providers Care Brush And Broom Clipper Name Role Phone Maru Arce MD Primary Care Provider [phone] Reason for Visit * Reason Onset Date Comments refill request 05/05/2020 Encounter Details Date Type Department Care Team Description 05/05/2020 Refill OBGYN - [place] [address] [place], [place] [id number] Nikolay Corley MD [address] [place], [place] [id number] refill request Social History Tobacco Use Types Packs/Day Years [...] encounter Miscellaneous Notes * Telephone Encounter - LUZ Boykin, RN - 05/10/2020 12:22 PM EDT Called pt she states she is doing well on zoloft, states was on 50 mg but then on 04/18 dose was increased, was sent in an additional script of 25mg of zoloft to be taken with the 50 mg tabs to equal 75mg daily. Pt states she needs more refills of the 25mg tabs, states she has about 10-12 tabs left but bottle states no refills. Pended order for 25mg tabs and refills for pt. Pt states the 75mg daily dose has been working well for her, states she feels like shes functioning well and denies any outbursts states she has no SI or HI or intent. Pt declined behavioral health referral as she states she has a therapist through [facility], states she hasnt seen them recently due to covid but has them as a contact if needed. Advised pt message will be sent to provider with pended order for 25mg tabs refills. Pt agrees withplan. Pt aware MD not in office today but is oncall this weekend and will be back in office on Saturday, with pt * Telephone Encounter - LUZ Boykin, CRISSY - 05/09/2020 3:32 PM EDT Telephone Information: Left message for pt to call back * Telephone Encounter - Nikolay Corley MD - 05/05/2020 6:53 PM EDT Please follow-up with the patient symptoms make sure she is doing well, if she is not then she needs to follow-up in order to discuss increasing her dose. Please also inquire about suicidal ideation.And if patient desires a referral to behavioral therapy. Thank you * Telephone Encounter - Lisa Bello - 05/05/2020 12:58 PM EDT WHEN WAS THE PATIENTS LAST ANNUAL GROCERY STORE CLERK EXAM? 01/18/20- post Does patient have an upcoming appointment? No (THE MEDICATION REQUESTED IS ON THE MED LIST ABOVE) Did you check the Pharmacy information above?: YES Indicate how soon the patient needs the script: SHER Patient would like script to be: E-PRESCRIBED/FAXED TO PHARMACY Is the doctor here today?: NO Can the message wait until the doctor returns?: NO Has the patient been told that the prescription will not be filled until the end of the day? NO Payor: JUNE/PPO POS / Plan: PPO $25 OSTRANDER [id number] / Product Type: PPO [id number] documented in this encounter Plan of Treatment Not on file documented as of this encounter Visit Diagnoses Diagnosis Positive depression screening Other abnormal clinical finding documented in this encounter Care Teams Brush And Broom Clipper Relationship Specialty Start Date End Date Maru Arce MD [facility] [place] [address] PCP - General Internal Medicine 04/06/16 documented as of this encounter
--- OUTSIDE RECORDS SUMMARY | 2025-10-11 23:04 | XMS_ITS | Encounter Summary ---
Author Organization [employer] Address [address] [place] [address] Care Team Providers Care Flare Man Name Role Phone Trixie Conrad MD Primary Care Provider [phone] Job Zimmerman Unavailable Unavailable Lisa Araujo MD Primary Care Provider [phone] Reason for Visit * Reason Comments Med Refill Encounter Details Date Type Department Care Team (Late st Contact Info) Description 12/28/2022 Refill [facility] MEDICINE [address] [place] [address] Job Zimmerman FNP Social History Tobacco Use Types Packs/Day Years Used Date Smoking Tobacco: Never Assessed Comments Unknown Sex and Gender Information Value [...] Noted Time PHQ-9 Depression Total Score: 12 023 10:39 AM EST documented as of this encounter Care Teams Flare Man Relationship Specialty Start Date End Date Trixie Conrad MD [address] [place] [address] PCP - General Family Medicine 11/05/18 07/12/24 Lisa Araujo MD [address] [place] [address] PCP - General Family Medicine 07/13/24 Job Zimmerman FNP [address] [place] [address] Nurse Practitioner Family Medicine 09/16/23 [facility] 09/18/[address] [place] [address] Consulting Physician Ophthalmology 09/18/24 Ms. Grant Psychologist 09/18/24 documented as of this encounter
--- OUTSIDE RECORDS SUMMARY | 2025-10-11 23:04 | XMS_ITS | Encounter Summary ---
Author Organization [employer] Address [address] [facility] 7 [place] [address] Care Team Providers Care Farmer Diversified Crops Name Role Phone Lupemery Job FIELD MARKETING SPECIALIST Unavailable Unavailable Lisa Araujo MD Primary Care Provider [phone] Reason for Visit * Reason Onset Date Comments Appointment Request 03/25/2025 Encounter Details Date Type Department Care Team ([facility] Contact Info) Description 03/25/2025 Telephone [facility] MEDICINE [address] [place] [address] Lisa Araujo MD [address] [place] [address] Appointment Request Social History Tobacco Use Types Packs/Day Years [...] encounter Miscellaneous Notes * Telephone Encounter - Zander German - 03/25/2025 12:30 PM EDT Tc from pt requesting to reschedule OV from 04/19. Please contact pt at [phone]. documented in this encounter Plan of Treatment Not on file documented as of this encounter Visit Diagnoses Not on filedocumented in this encounter Additional Health Concerns Assessment Noted Time PHQ-9 Depression Total Score: 12 024 2:54 PM EDT documented as of this encounter Care Teams Farmer Diversified Crops Relationship Specialty Start Date End Date Lisa Araujo MD [address] [place] [address] PCP - General Family Medicine 07/13/24 Job Zimmerman FNP Nurse Practitioner Family Medicine 09/16/23 [facility] 09/18/[address] [place] [address] Consulting Physician Ophthalmology 09/18/24 Ms. Grant Psychologist 09/18/24 documented as of this encounter
--- OUTSIDE RECORDS SUMMARY | 2025-10-11 23:04 | XMS_ITS | Encounter Summary ---
Author Organization [employer] [facility] Prior to 09/04/2024 Address [address] [place] [address] Care Team Providers Care Splitter Tender Name Role Phone Maru Arce MD Primary Care Provider [phone] Encounter Details Date Type Department Care Team Description 06/16/2019 Orders Only Medical Records [address] [place] [address] Smitha Gonzalez MD Social History Tobacco Use Types Packs/Day Years [...] on file documented as of this encounter Procedures Procedure Name Priority Date/Time Associated Diagnosis Comments OUTSIDE LAB Routine 06/12/2019 documented in this encounter Results * OUTSIDE LAB (06/12/2019) Smitha Gonzalez MD LAB documented in this encounter Visit Diagnoses Not on filedocumented in this encounter Care Teams Splitter Tender Relationship Specialty Start Date End Date Maru Arce MD [address] [place] [address] PCP - General Internal Medicine 04/06/16 documented as of this encounter
== END 2025-10-11 14:10 | disposition home or self-care (01) ==
LOC: HO.CHCLNP 14:09
PROVIDERS: Visit Provider Family Medicine
DX: R30.0 Dysuria (principal)
CPT/HCPCS: 87086

== ENCOUNTER 2025-10-27 13:27 | Outpatient (REF) | payer OTHER, SELFPAY ==
--- OUTSIDE RECORDS SUMMARY | 2025-10-27 13:00 | XMS_ITS | Encounter Summary ---
Author Organization [employer] Address [address] [facility] 7 [place] [address] Care Team Providers Care Assistant Project Manager Name Role Phone Job Zimmerman Unavailable Unavailable Lisa Araujo MD Primary Care Provider [phone] Encounter Details Date Type Department Care Team ([facility] Contact Info) Description 10/27/2025 1:00 PM EST Office Visit [facility] MED & PEDS [address] [place] [address] Tank Holman MD [address] [place] [address] Acute cystitis without hematuria (Primary Dx) Social History Tobacco Use Types [...] the past 12 months, has t he [employer], gas, oil or water company threatened to [...] Sign Reading Time Taken Comments Blood Pressure 117/72 10/27/2025 12:55 PM EST Pulse 99 10/27/2025 12:55 PM EST Temperature - - Respiratory Rate 20 10/27/2025 12:55 PM EST Oxygen Saturation 98% 10/27/2025 12:55 PM EST Inhaled Oxygen Concentration - - Weight 86.6 kg (191 lb) 10/27/2025 12:55 PM EST Height 175.3 cm (5' 9 ) 10/27/2025 12:55 PM EST Body Mass Index 28.21 10/27/2025 12:55 PM EST documented in this encounter Progress Notes * Tank Holman MD - 10/27/2025 1:00 PM EST SUBJECTIVE Jhony Parrish is a 35 y.o. female who presents for No chief complaint on file.. Note from triage reviewed: TC placed to patient. Patient reported painful urination with foul smelling urine that started last night. Denies any burning with urination or hematuria. Patient reported she was treated for UTI 3 weeks ago and was given antibiotics which she finished. RN informed patient of the [facility] hours and days of operation. Patient declined d/t transportation. RN scheduled an appt at [facility]. RN advised patient if her symptoms worsen prior to her appt to go to the [facility] or the ED for further evaluation. Patient verbalized understanding. History obtained from Ms Jhony Parrish, 35-year-old female - Urinary tract infection a couple of weeks ago, treated with antibacterial medication - Recurrence of urinary tract infection symptoms 2-3 days after completing antibiotics - Urinary discomfort and pain with urination - Urinary frequency and nocturnal pelvic pain, worse over the past two nights - Foul-smelling urine - Sexually active, had intercourse once after finishing antibiotics, used condom - Previous STD testing reported as negative - Denies fever Problem List[1] Allergies[2] Medications Ordered Prior to Encounter[3] Review of Systems Constitutional: Negative for appetite change, chills and diaphoresis. Eyes: Negative for pain and redness. Respiratory: Negative for cough and choking. Genitourinary: Positive for dysuria, frequency and pelvic pain. OBJECTIVE Vitals: 10/27/25 1255 BP: 117/72 BP Location: Left arm Patient Position: Sitting BP Cuff Size: Adult long Pulse: 99 Resp: 20 SpO2: 98% Weight: 191 lb (86.6 kg) Height: 5' 9 (1.753 m) Physical Exam Constitutional: General: She is not in acute distress. Appearance: Normal appearance. She is not ill-appearing, toxic-appearing or diaphoretic. Pulmonary: Effort: Pulmonary effort is normal. Abdominal: Palpations: Abdomen is soft. Neurological: General: No focal deficit present. Mental Status: She is alert. Psychiatric: Mood and Affect: Mood normal. Assessment/Plan Assessment/Plan Diagnoses and all orders for this visit: Acute cystitis without hematuria - Culture, Urine, Routine; Future - Chlamydia/N. Gonorrhoeae RNA, TMA, Urogenitial - HIV-1/2 Antigen and Antibodies, Fourth Generation, with Reflexes; Future - Hepatitis C Antibody with Reflex to HCV, RNA, Quantitative, Real-Time PCR; Future - RPR (Monitor) with Reflex to Titer; Future - Urinalysis w/reflex microscopic; Future - Trichomonas vaginalis RNA, Qualitative, TMA, Males; Future - sulfamethoxazole-trimethoprim (Bactrim DS) 800-160 MG tablet; Take 1 tablet by mouth 2 times daily for 7 days. - phenazopyridine (Pyridium) 200 MG tablet; Take 1 tablet (200 mg) by mouth if needed in the morning, at noon, and at bedtime for bladder spasms for up to 3 days. Acute cystitis without hematuria: - Acute cystitis without hematuria. - Prescribed Bactrim. Ordered urinalysis and blood test. Recommended increased oral hydration. Prescribed Pyridium for symptomatic relief. Advised to monitor urine color changes due to Pyridium. Provided instructions to contact via patient portal as needed. - Risks and side effects: Informed that Pyridium may cause change in urine color. This note was drafted using Ambient (AI) technology. The patient/patient's guardian has been informed and has consented to the use of this technology: Yes [1] Patient Active Problem List Diagnosis Bipolar disorder (HCC) Gestational hypertension Persistent insomnia Anxiety Vitamin D deficiency Nausea Asthma Headache Sleep disorder Rh negative status during Depression [2] No Known Allergies [3] Current Outpatient Medications on File Prior to Visit Medication Sig Dispense Refill albuterol 108 (90 Base) MCG/ACT inhaler Inhale 2 puffs every 4 (four) hours if needed for wheezing.18 g 0 ARIPiprazole (Abilify) 10 MG tablet Take 1 tablet (10 mg) by mouth Once per day. 30 tablet 3 ARIPiprazole (Abilify) 15 MG tablet Take 15 mg by mouth Once per day. brimonidine (AlphaGAN) 0.2 % ophthalmic solution PLACE ONE DROP IN EACH EYE TWICE DAILY busPIRone (Buspar) 10 MG tablet Take 1 tablet (10 mg) by mouth 2 times daily. 60 tablet 5 busPIRone (Buspar) 30 MG tablet Take 30 mg by mouth 2 times daily. ergocalciferol (Vitamin D2) 1.25 MG (28225 UT) capsule Take 1 capsule (1.25 mg) by mouth 1 (one) time per week. 15 capsule 0 hydrOXYzine pamoate (Vistaril) 25 MG capsule TAKE ONE CAPSULE EVERY DAY NEEDED FOR SLEEP lamoTRIgine (LaMICtal XR) 100 mg tablet sustained-release 24 hour 24 hr tablet Take 100 mg by mouthOnce per day. lamoTRIgine (LaMICtal XR) 200 mg tablet sustained-release 24 hour 24 hr tablet Take 200 mg by mouthOnce per day. lamoTRIgine (LaMICtal XR) 300 mg tablet sustained-release 24 hour 24 hr tablet Take 1 tablet (300 mg) by mouth in the morning. 90 tablet 3 melatonin 5 MG tablet Take 1 tablet by mouth at bedtime. traZODone (Desyrel) 50 MG tablet TAKE 1/2 TO 1 TABLET AT BEDTIME NEEDED FOR SLEEP No current facility-administered medications on file prior to visit. documented in this encounter Plan of Treatment Scheduled Orders Name Type Priority Associated Diagnoses Orde r Schedule Culture, Urine, Routine Microbiology Routine Acute cystitis without hematuria Expected: 10/27/2025 (Approximate), Expires: 10/27/2026 Chlamydia/N. Gonorrhoeae RNA, TMA, Urogenitial Microbiology Routine Acute cystitis without hematuria Ordered: 10/27/2025 HIV-1/2 Antigen and Antibodies, Fourth Generation, with Reflexes Lab Routine Acute cystitis without hematuria Expected: 10/27/2025 (Approximate), Expires: 10/27/2026 Hepatitis C Antibody with Reflex to HCV, RNA, Quantitative, Real-Time PCR Lab Routine Acute cystitis without hematuria Expected: 10/27/2025, Expires: 10/27/2026 RPR (Monitor) with Reflex to Titer Lab Routine Acute cystitis without hematuria Expected: 10/27/2025, Expires: 10/27/2026 Urinalysis w/reflex microscopic Lab Routine Acute cystitis without hematuria Expected: 10/27/2025, Expires: 10/27/2026 Trichomonas vaginalis RNA, Qualitative, TMA, Males Lab Routine Acute cystitis without hematuria Expected: 10/27/2025, Expires: 10/27/2026 documented as of this encounter Visit Diagnoses Diagnosis Acute cystitis without hematuria- Primary documented in this encounter Additional Health Concerns Assessment Noted Time PHQ-9 Depression Total Score: 12 024 2:54 PM EDT documented as of this encounter Care Teams Assistant Project Manager Relationship Specialty Start Date End Date Lisa Araujo MD [address] [place] [address] PCP - General Family Medicine 07/13/24 Job Zimmerman FNP Nurse Practitioner Family Medicine 09/16/23 [facility] 09/18/[address] [place] [address] Consulting Physician Ophthalmology 09/18/24 Ms. Grant Psychologist 09/18/24 documented as of this encounter
--- OUTSIDE RECORDS SUMMARY | 2025-10-27 13:29 | XMS_ITS | Encounter Summary ---
Author Organization [employer] Address [address] [facility] 7 [place] [address] Care Team Providers Care Rn Cardiology Name Role Phone Lupemery Job CONDUIT BENDER Unavailable Unavailable Lisa Araujo MD Primary Care Provider [phone] Reason for Visit * Reason Onset Date Comments Appointment Request 03/25/2025 Encounter Details Date Type Department Care Team ([facility] Contact Info) Description 03/25/2025 Telephone [facility] MEDICINE [address] [place] [address] Lisa Araujo MD [address] [place] [address] Appointment Request Social History Tobacco Use Types [...] OV from 04/19. Please contact pt at [phone]. documented in this encounter Plan of Treatment Not on file documented as of this encounter Visit Diagnoses Not on filedocumented in this encounter Additional Health Concerns Assessment Noted Time PHQ-9 Depression Total Score: 12 024 2:54 PM EDT documented as of this encounter Care Teams Rn Cardiology Relationship Specialty Start Date End Date Lisa Araujo MD [address] [place] [address] PCP - General Family Medicine 07/13/24 Job Zimmerman FNP Nurse Practitioner Family Medicine 09/16/23 [facility] 09/18/[address] [place] [address] Consulting Physician Ophthalmology 09/18/24 Ms. Grant Psychologist 09/18/24 documented as of this encounter
--- OUTSIDE RECORDS SUMMARY | 2025-10-27 13:29 | XMS_ITS | Clinical Summary ---
Author Organization [facility] Address [address] [place] [address] Phone Care Team Providers Care Cashier Associate Name Role Phone Marysol Arce MD Primary [...] Recently Relevant to Health Maintenance Care Teams Cashier Associate Relationship Specialty Start Date End Date Marysol Arce MD PCP - General Internal Medicine 04/06/16
--- OUTSIDE RECORDS SUMMARY | 2025-10-27 13:30 | XMS_ITS | Encounter Summary ---
Author Organization [employer] Address [address] [facility] 7 [place] [address] Care Team Providers Care Paradi Tender Name Role Phone Job Zimmerman CONSUMER MARKETING ANALYST Unavailable Unavailable Lisa Araujo MD Primary Care Provider [phone] Reason for Visit * Reason Onset Date Comments Nurse Triage 10/25/2025 Encounter Details Date Type Department Care Team ([facility] Contact Info) Description 10/25/2025 Telephone [facility] MED & PEDS [address] [place] [address] Lisa Araujo MD [address] [place] [address] Nurse Triage Social History Tobacco Use Types [...] the past 12 months, has t he [email or web address], gas, oil or water [employer] threatened to shut off services in your [...] encounter Miscellaneous Notes * Telephone Encounter - Davis Lea RN - 10/25/2025 10:38 AM EST TC placed to patient. Patient reported painful urination with foul smelling urine that started lastnight. Denies any burning with urination or hematuria. Patient reported she was treated for UTI 3 weeks ago and was given antibiotics which she finished. RN informed patient of the Walk in [place] hours and days of operation. Patient declined d/t transportation. RN scheduled an appt at [facility]. RN advised patient if her symptoms worsen prior to her appt to go to the [facility] or the ED for further evaluation. Patient verbalized understanding. Protocol Used: Urinary Symptoms (Adult) Protocol-Based Disposition: See in Office or Video Visit Today Video visit not offered Positive Triage Questions: * Bad or foul-smelling urine * Patient wants to be seen * All other urine symptoms * All higher-acuity triage questions were negative. Care Advice Discussed: * Reasons To Call Back - Fever occurs - Pain or burning with urination - Unable to urinate and bladder feels full - You become worse * Telephone Encounter - Polo [place] - 10/25/2025 8:39 AM EST Symptom: Urine Symptoms Outcome: Schedule an urgent appointment (within 4 hours) or talk to a nurse or provider soon Reason: Pain when passing urine (peeing) The caller accepted this outcome. Contact pt at [phone] documented in this encounter Plan of Treatment Not on file documented as of this encounter Visit Diagnoses Not on filedocumented in this encounter Additional Health Concerns Assessment Noted Time PHQ-9 Depression Total Score: 12 024 2:54 PM EDT documented as of this encounter Care Teams Paradi Tender Relationship Specialty Start Date End Date Lisa Araujo MD [address] [place] [address] PCP - General Family Medicine 07/13/24 Job Zimmerman FNP Nurse Practitioner Family Medicine 09/16/23 [facility] 09/18/[address] [place] [address] Consulting Physician Ophthalmology 09/18/24 Ms. Grant Psychologist 09/18/24 documented as of this encounter
--- OUTSIDE RECORDS SUMMARY | 2025-10-27 13:30 | XMS_ITS | Encounter Summary ---
Author Organization [employer] Address [address] [place] [address] Care Team Providers Care Toll Ticket Clerk Name Role Phone Trixie Conrad MD Primary Care Provider [phone] Job Zimmerman Unavailable Unavailable Lisa Araujo MD Primary Care Provider [phone] Reason for Visit * Reason Comments Med Refill Encounter Details Date Type Department Care Team (Late st Contact Info) Description 12/28/2022 Refill [facility] MEDICINE [address] [place] [address] Job Zimmerman FNP Social History Tobacco Use [...] documented as of this encounter Care Teams Toll Ticket Clerk Relationship Specialty Start Date End Date Trixie Conrad MD [address] [place] [address] PCP - General Family Medicine 11/05/18 07/12/24 Lisa Araujo MD [address] [place] [address] PCP - General Family Medicine 07/13/24 Job Zimmerman FNP [address] [place] [address] Nurse Practitioner Family Medicine 09/16/23 [facility] 09/18/[address] [place] [address] Consulting Physician Ophthalmology 09/18/24 Ms. Grant Psychologist 09/18/24 documented as of this encounter
--- OUTSIDE RECORDS SUMMARY | 2025-10-27 13:30 | XMS_ITS | Encounter Summary ---
Author Organization [employer] Address [address] [facility] [address] [place] [address] Care Team Providers Care Consultant Luxury And Auto. Vice President [employer] (Ex ) Name Role Phone Job Zimmerman Unavailable Unavailable Lisa Araujo MD Primary Care Provider [phone] Encounter Details Date Type Department Care Team (Latest Contact Info) Description 10/27/2025 Travel Social History Tobacco Use Types Packs/Day [...] documented as of this encounter Care Teams Consultant [employer]. Vice President [employer] (Ex ) Relationship Specialty Start Date End Date Lisa Araujo MD [address] [place] [address] PCP - General Family Medicine 07/13/24 Job Zimmerman FNP Nurse Practitioner Family Medicine 09/16/23 [facility] 09/18/[address] [place] [address] Consulting Physician Ophthalmology 09/18/24 Ms. Grant Psychologist 09/18/24 documented as of this encounter
--- OUTSIDE RECORDS SUMMARY | 2025-10-27 13:30 | XMS_ITS | Clinical Summary ---
Author Organization [employer] Address [address] [place] [address] Care Team Providers Care Application Engineer Name Role Phone Job Zimmerman Unavailable Unavailable Lisa Araujo MD Primary Care Provider [phone] Allergies No known active allergies Medications * This document contains information received from the source organization and may not represent a complete record from that organization. ergocalciferol (Vitamin D2) 1.25 MG (28905 UT) capsule Take 1 capsule (1.25 mg) by mouth 1 (one) time per week. 15 capsule 3 Active ARIPiprazole (Abilify) 10 MG tablet Take 1 tablet (10 mg) by mouth Once per day. 30 tablet 3 4 Active lamoTRIgine (LaMICtal XR) 300 mg tablet sustained-releas e 24 hour 24 hr tabletIndication s:Bipolar affective disorder, remission status unspecified (CMS/HCC) ([facility]) Take 1 tablet (300 mg) by mouth in the morning. 90 tablet 3 4 Active busPIRone (Buspar) 10 MG tablet Take 1 tablet (10 mg) by mouth 2 times daily. 60 tablet 5 4 Active brimonidine (AlphaGAN) 0.2 % ophthalmic solution PLACE ONE DROP IN EACH EYE TWICE DAILY 4 Active albuterol 108 (90 Base) MCG/ACT inhaler Inhale 2 puffs every 4 (four) hours if needed for wheezing. 18 g 4 Active hydrOXYzine pamoate (Vistaril) 25 MG capsule TAKE ONE CAPSULE EVERY DAY NEEDED FOR SLEEP Active melatonin 5 MG tablet Take 1 tablet by mouth at bedtime. Active traZODone (Desyrel) 50 MG tablet TAKE 1/2 TO 1 TABLET AT BEDTIME NEEDED FOR SLEEP Active ARIPiprazole (Abilify) 15 MG tablet Take 15 mg by mouth Once per day. Active busPIRone (Buspar) 30 MG tablet Take 30 mg by mouth 2 times daily. Active lamoTRIgine (LaMICtal XR) 100 mg tablet sustained-releas e 24 hour 24 hr tablet Take 100 mg by mouth Once per day. Active lamoTRIgine (LaMICtal XR) 200 mg tablet sustained-releas e 24 hour 24 hr tablet Take 200 mg by mouth Once per day. Active sulfamethoxazole -trimethoprim (Bactrim DS) 800-160 MG tabletIndication s:Acute cystitis without hematuria Take 1 tablet by mouth 2 times daily for 7 days. 14 tablet 5 11/03/20 25 Active phenazopyridine (Pyridium) 200 MG tabletIndication s:Acute cystitis without hematuria Take 1 tablet (200 mg) by mouth if needed in the morning, at noon, and at bedtime for bladder spasms for up to 3 days. 6 tablet 5 10/30/20 25 Active nitrofurantoin, macrocrystal-mon ohydrate, (Macrobid) 100 MG capsule Take 1 capsule (100 mg) by mouth 2 times daily for 7 days. 14 capsule 10/11/2025 12:14 PM EST 5 10/18/20 25 Active Problems Problem Noted Date Diagnosed Date Rh negative status during 10/11/2025 Nausea 04/13/2024 Vitamin D deficiency 02/07/2023 Bipolar disorder 11/08/2022 Assessment & Plan (05/18/2024 9:12 AM EDT): During IBH Consult Jhony presenting with excessive worry/anxiety, difficulty controlling worry, easily fatigued, irritability, and sleep disturbance difficulty falling asleep; for a period of 18+ mo, for all symptoms in the context of history of chronic mental health illness. Jhony carries a diagnosis for bipolar disorder per her medical chart diagnosed by Job Leonardo. Jhony reports history of mental health conditions [...] individual therapy. Medication management will continue with C/psych provider by Job's recommendation. PLAN: (check all that apply) New/Additional Services needed PCP management On-site non-integrated services Off-site services for Behavioral Health Integration Plan Internal Follow up with [facility] External OP therapy referral Patient Self Plan Patient to utilize skills provided in intervention , Patient to reach out to [facility] team as needed, Comply with medication , Patient to engage in OP therapy , and Patient to reach out to PSYCHIATRIC as needed Assessment & Plan (05/12/2024 9:34 [...] providers listed. Will also request BE from [facility] clinician. Will increase to Abilify 10 mg daily. Continue Lamotrigine XR 300 mg once daily. Although she does not plan to have more children, she does have reproductive capacity. Reassured that both medications are believed to be safe in . Since this provider will be retiring, patient will be referred to new [facility] psychiatric provider. She is aware that appts will be via televisit, and that provider will not be an employee of [facility]. She gives permission to share PHI. Any [...] prn. Avoid alcohol. Recommend she contact the [facility] via phone or walk-in to connect [...] per her medical chart diagnosed by Job Leonardo. Jhony reports history of mental health conditions [...] individual therapy. Medication management will continue with [facility]/psych provider by Job's recommendation. PLAN: (check all that apply) New/Additional Services needed PCP management On-site non-integrated services Off-site services for Behavioral Health Integration Plan Internal Follow up with [facility] External OP therapy referral Patient Self Plan Patient to utilize skills provided in intervention , Patient to reach out to [facility] team as needed, Comply with medication , Patient to engage in OP therapy , and Patient to reach out to PSYCHIATRIC as needed Sleep disorder 07/25/2016 Resolved Problems [...] Encounters Date Type Department Care Team Description 10/27/2025 1:00 PM EST Office Visit [facility] [address] [place] [address] Tank Holman MD Acute cystitis without hematuria (Primary Dx) 10/27/2025 Travel 10/26/2025 Telephone [facility] [address] [place] [address] Jaed Atkinson RN 10/25/2025 Telephone [facility] [address] [place] [address] Lisa Araujo MD Nurse Triage 10/11/2025 11:30 AM EST Office Visit [facility] [address] [place] [address] Lisa Araujo MD Dysuria (Primary Dx) 10/11/2025 Travel 10/11/2025 Telephone [facility] [address] [place] [address] Lisa Araujo MD Nurse Triage from Last [...] Pulse 99 10/27/2025 12:55 PM EST Temperature 36.2 C (97.2 F) 10/11/2025 11:42 AM EST Respiratory Rate 20 10/27/2025 12:55 PM EST Oxygen Saturation 98% 10/27/2025 12:55 PM EST Inhaled Oxygen Concentration - - Weight 86.6 kg (191 lb) 10/27/2025 12:55 PM EST Height 175.3 cm (5' 9 ) 10/27/2025 12:55 PM EST Body Mass Index 28.21 10/27/2025 12:55 PM EST Plan of Treatment Health Maintenance Due [...] 2025 Pap Smear 02/07/2026 02/07/2023 Tobacco Screening 10/27/2026 10/27/2025 Cervical Cancer Screening 2028 HPV/Cotest 2028 02/07/2023 [...] DIPSTICK Routine 10/11/2025 11:51 AM EST Dysuria CULTURE, URINE, ROUTINE Routine 10/11/2025 11:51 AM EST Dysuria LIPID [...] Media Lot # [id number] Lot# Expiration Date [id number] Urine (Urine, Random) 10/11/2025 11:51 AM EST Lisa Araujo MD POINT OF CARE TEST ENTER/EDIT ORDERABLES Final Result * Culture, Urine, Routine (10/11/2025 11:51 AM EST) Urine Urine specimen obtained by clean catch procedure / Unknown 10/11/2025 11:51 AM EST 10/11/2025 2:44 PM EST Comment:UACC Narrative [facility] - 10/14/2025 8:27 AM EST Escherichia coli Quant > 100,000 cfu/mL Escherichia coli: Ampicillin >=32(R) Escherichia coli: Cefazolin (Urine) <=1(S) Escherichia coli: Cefepime <=0.12(S) Escherichia coli: Ceftriaxone <=0.25(S) Escherichia coli: Ciprofloxacin 0.5(I) Escherichia coli: Gentamicin <=1(S) Escherichia coli: Nitrofurantoin <=16(S) Escherichia coli: Trimethoprim/Sulfamethoxazole >=320(R) Specimen Source: Urine clean catch Lisa Araujo MD LAB MICROBIOLOGY - GENERAL OR DERABLES Final Result [facility] [address] [place] [phone] * (ABNORMAL) Lipid Panel, Standard (10/06/2024 10:43 AM EST) Triglycerides 63 <150 mg/dL [facility] Comment:Desirable Triglyceri de: less than 150 mg/dLBorderline High Triglyceride 150-199 mg/dLHigh Triglyceride: 200-499 mg/dLVery High Triglyceride: greater than or equal to 5OO mg/dL Cholesterol 230(H) <200 mg/dL [facility] Comment:Desirable Cholestero l: less than 200 mg/dLBorderline High Cholesterol: 200-239 mg/dLHigh Cholesterol: greater than 239 mg/dL LDL Cholesterol Calculated 152(H) <100 mg/dL [facility] Comment:Desirable LDL: less than 100 mg/dLNear Optimal/Above Optimal LDL: 110- 129 mg/dLBorderline High LDL: 130-159 mg/dLHigh LDL: 160-189 mg/dLVery High LDL: greater than or equal to 190 mg/dL HDL Cholesterol 66 >40 mg/dL [facility] Comment:Desirable HDL: great er than 40 mg/dL Note: This HDL assay may give artificially low results in patients with liver disease. Blood Venous blood specimen / Unknown 10/06/2024 10:43 AM EST 10/06/2024 1:35 PM EST us Alexandra Snell MD LAB BLOOD ORDERABLES Final Resul t [facility] [address] [place] [phone] * HIV-1 RNA, Quantitative, Real-Time PCR with Reflex to Genotype (RTI, PI, Integrase) (03/06/2023 11:37 AM EDT) HIV 1 RNA, QN PCR NOT DETECTED copies/mL [facility], HIV 1 RNA, QN PCR NOT DETECTED Log copies/mL [facility], Comment: REFERENCE RANGE: NOT DETECTED copies/mL NOT DETECTED Log copies/mL This test was performed using Real-Time Polymerase Chain Reaction. Reportable range is 20 to 10,000,000 copies/mL (1.30-7.00 Log copies/mL). 03/06/2023 11:3 7 AM EDT 03/06/2023 11:38 AM EDT Trixie Conrad MD LAB BLOOD ORDERABLES Final Re sult [facility] [address] [facility], [place] [address] [facility], [address] [place] [address] * (ABNORMAL) Hepatitis Panel, General (03/06/2023 11:37 AM EDT) Hepatitis A Antibody Total NON-REACT RYANN NON-REACT RYANN [facility] [employer] Comment: For additional information, please refer to http://OmnyPay.Etece/faq/ZZQ823 (This link is being provided for informational/ educational purposes only.) Hepatitis B Surface Antibody QL REACTIVE( A) NON-REACT RYANN [facility] Hepatitis B Surface Ag NON-REACT RYANN NON-REACT RYANN [facility] Hepatitis B Core Antibody Total NON-REACT RYANN NON-REACT RYANN [facility] Hepatitis C Antibody NON-REACT RYANN NON-REACT RYANN [facility] Index 0.07 <1.00 [facility] [employer] Comment: HCV antibody was non-reactive. There is no laboratory evidence of HCV infection. In most cases, no further action is required. However, if recent HCV exposure is suspected, a test for HCV RNA (test code 13052) is suggested. For additional information please refer to http://OmnyPay.Etece/faq/PCV36t1 (This link is being provided for informational/ educational purposes only.) 03/06/2023 11:3 7 AM EDT 03/06/2023 11:38 AM EDT Trixie Conrad MD LAB BLOOD ORDERABLES Final Re sult [facility] [address], [place] [address] [facility] [address] [place] [address] * Image-Guided Pap with Age-Based Screening??with CT/NG,??Trichomonas (02/07/2023 2:14 PM EDT) Comment [facility] Comment: This order for age-based cervical cancer and STI screening follows ACOG guidelines(PB 168, 140, MBH759). See individual assays for performing site location. Clinical Information: None given [facility] LMP: NONE GIVEN [facility] Prev. PAP: NONE GIVEN [facility] Prev. BX: NONE GIVEN [employer] SOURCE: Cervix [facility] Statement Of Adequacy: [facility] Comment: Satisfactory for evaluation. Endocervical/transformation zone component absent. Partially obscuring inflammation Interpretation/Re sult: Negative for intraepithelial lesion or malignancy. [facility] Comment: This Pap test has been evaluated with computer assisted technology. [facility] Herbicide Sprayer: Jv Azimo Comment: WAC, CT(ASCP) CT screening location: [address] [address] (Always Message) [facility] [employer] Comment: EXPLANATORY NOTE: The Pap is a [...] HPV nRNA E6/E7 Not Detected Not Detected [facility] Comment: Methodology: Filter Tip Catcher-Mediated Amplification This assay detects E6/E7 viral messenger RNA (mRNA) from 14 high-risk HPV types (16,18,31,33,35,39,45,51,52,56,58,59,66,68). Cervical sources are required for HPV testing. If a vaginal source from a patient who has had a total hysterectomy with removal of cervix was submitted, please contact the testing laboratory for alternative testing options. For additional information, please refer to http://OmnyPay.Etece/faq/NOI058t8 (This link if provided for information/ educational purposes only.) Chlamydia trachomatis RNA, TMA, Urogenital NOT DETECTED NOT DETECTED [facility] Neisseria gonorrhoeae RNA, TMA, Urogenital NOT DETECTED NOT DETECTED [facility] Comment [facility] Comment: The analytical performance characteristics of this assay, when used to test SurePath(TM) specimens have been determined by [facility] [employer] [facility]. The modifications have not been cleared or approved by the FDA. This assay has been validated pursuant to the CLIA regulations and is used for clinical purposes. For additional information, please refer to https://WhereverTV/faq/LZZ022 (This link is being provided for information/ educational purposes only.) Trichomonas vaginalis, QL, TMA, PAP Vial NOT DETECTED NOT DETECTED [facility] Comment: The analytical performance characteristics of this assay have been determined by [facility] [employer] [facility]. The modifications have not been cleared or approved by the FDA. This assay has been validated pursuant to the CLIA regulations and is used for clinical purposes. For additional information, please refer to http://OmnyPay.Etece/ faq/Trichomonastma (This link is being provided for information/ educational purposes only.) Specimen from uterine cervix (specimen) 02/07/2023 2:14 PM EDT 02/07/2023 11:42 PM EDT Trixie Conrad MD LAB CYTOLOGY ORDERABLES Final Result [facility] [address], [place] [address] [facility] [place] [facility] [address] [place] [address] from Last 3 Months or Most Recently Relevant to Health Maintenance Insurance [facility] 2 Care Teams Application Engineer Relationship Specialty Start Date End Date Lisa Araujo MD [address] [place] [address] PCP - General Family Medicine 07/13/24 Job Zimmerman FNP Nurse Practitioner Family Medicine 09/16/23 [facility] 09/18/[address] [place] [phone] Consulting Physician Ophthalmology 09/18/24 Ms. Grant Psychologist 09/18/24
--- OUTSIDE RECORDS SUMMARY | 2025-10-27 13:30 | XMS_ITS | Encounter Summary ---
Author Organization [employer] Address [address] [place] [address] Care Team Providers Care Spice Room Worker Name Role Phone Job Zimmerman Unavailable Unavailable Lisa Araujo MD Primary Care Provider [phone] Encounter Details Date Type Department Care Team ([facility] Contact Info) Description 10/26/2025 Telephone [facility] [address] [place] [address] Jade Atkinson, RN [address] [place] [address] Social History Tobacco Use Types Packs/Day Years [...] encounter Miscellaneous Notes * Telephone Encounter - Jade Atkinson RN - 10/26/2025 9:59 AM EST Called pt to reschedule appointment for tomorrow, spoke to pt. Given appointment 1:00 due to centerclosing early tomorrow. Pt understands and agrees with plan. Appointment 10/27 at 1:00 with [facility] provider. documented in this encounter Plan of Treatment Not on file documented as of this encounter Visit Diagnoses Not on filedocumented in this encounter Additional Health Concerns Assessment Noted Time PHQ-9 Depression Total Score: 12 024 2:54 PM EDT documented as of this encounter Care Teams Spice Room Worker Relationship Specialty Start Date End Date iLsa Araujo MD [address] [place] [address] PCP - General Family Medicine 07/13/24 Job Zimmerman FNP Nurse Practitioner Family Medicine 09/16/23 [facility] 09/18/[address] [place] [phone] Consulting Physician Ophthalmology 09/18/24 Ms. Grant Psychologist 09/18/24 documented as of this encounter
[2025-10-29 03:41] LABS: HIV Num 1 0.08 S/CO (0.00-0.99); ~HepC Num1 0.07 S/CO (0.00-0.79); ~Hepatitis C Antibody Nonreactive (Nonreactive)
== END 2025-10-27 13:28 | disposition home or self-care (01) ==
LOC: HO.CHCLDS 13:27
PROVIDERS: Visit Provider Internal Medicine
DX: N30.00 Acute cystitis without hematuria (principal); Z11.3 Encounter for screening for infections with a predominantly sexual mode of transmission; Z11.4 Encounter for screening for human immunodeficiency virus [HIV]
CPT/HCPCS: 36415; 86592; 86803; 87086; 87088; 87186; 87389